=== PATIENT | male | born 1975 | race Caucasian/White ===

== ENCOUNTER 2024-02-25 01:14 | Emergency (ER) | payer OTHER, SELFPAY ==
[2024-02-25 01:26] VITALS: BP 168/105
--- NOTE | 2024-02-25 01:38 | ED.GENMED ---
History of Present Illness
<KATALINA Herman - Last Filed: 02/25/24 02:31>
General
Chief Complaint: Flank Pain
Source: patient
Time Seen by Provider: 02/25/24 01:38
Travel History
Have you had any contact with someone who has COVID-19?: No
Do you have any symptoms of coronavirus? Fever > 100 degrees, chills, cough, shortness of breath, sore throat, loss of taste or smell, muscle aches, or headache?: No
History of Present Illness
History of Present Illness:
Pt is a 48 year old male with a PMHx of HTN presenting for right flank pain since Wednesday02/19/24. He was driven here by his mother as he was not sure he would have to stay and sitting while driving exacerbates his pain. The pain began after
lifting a heavy bag of potatoes. He states his PCP thought it was a muscle spasm and instructed him to take ibuprofen. He reports he has also tried applying veterinary liniment gel but reports nothing has not helped his pain. While nothing specific
relieves his pain he states it comes and goes. He describes it as sharp with radiation to his lower back. He states when the pain is less it is a 5.5/10, but flares to a 10/10 when exacerbated. He reports nausea the first day but not since. He
denies vomiting, diarrhea, fever/chills, dysuria, hematuria, exacerbation with eating, chest pain, SOB, or headache. He reports a family history of nephrolithiasis (son and father). He denies tobacco use and reports occasional alcohol consumption.
He reports taking amlodipine 10 mg, metoprolol 25 mg, lisinopril 40 mg, and HCTZ 25 mg all once daily for HTN.
Review of Systems
<KATALINA Herman - Last Filed: 02/25/24 02:31>
Review of Systems
All Other Systems: Not applicable
Constitutional: Reports no symptoms
EENT: Reports no symptoms
Respiratory: Reports no symptoms
Cardiac: Reports no symptoms
ABD/GI: Reports nausea
: Reports flank pain
Musculoskeletal: Reports no symptoms
Skin: Reports no symptoms
Neurological: Reports no symptoms
Endocrine: Reports no symptoms
Hematologic/Lymphatic: Reports no symptoms
Psychiatric: Reports no symptoms
Phy Exam
<KATALINA Herman - Last Filed: 02/25/24 02:31>
General Physical Exam
General Presentation: well appearing and no apparent distress
General age: appears stated age
General Skin: warm and dry
General Habitus: obese
General Mental: alert
General Hydration: appears well hydrated
ENT Exam
ENT Exam: EOMI
Eye Exam
Eye Exam: conjunctiva normal
Cardiovascular Exam
Cardiovascular Exam: regular rate/rhythm, no gallop and no murmur
Pulmonary Exam
Pulmonary Exam: lungs clear, no respiratory distress, no rales, no crackles, no rhonchi, no wheezing and no cough
Gastrointestinal Exam
Gastrointestinal Exam: normal bowel sounds, non tender, soft, non distended and no cva tenderness
Neurological Exam
Neurological Exam: alert and oriented x3
Musculoskeletal Exam
Musculoskeletal Exam: back pain (TTP of right lumbar paraspinal muscles)
Skin Exam
Skin Exam: normal color and warm/dry
Psychiatric Exam
Psychiatric Exam: normal mood/affect
Course
<KATALINA Herman - Last Filed: 02/25/24 02:31>
Orders/Labs/Results
Orders:
Orders
02/25/24 01:44
Urinalysis Reflex To Culture Urgent
Date Specimen was Collected: 02/25/24
Time Specimen was Collected: 01:33
Urine Microscopic Reflex Cult Urgent
Urine Culture Urgent
[facility] Source: U
Specimen Description:
Date Specimen was Collected: 02/25/24
Time Specimen was Collected: 01:33
02/25/24 02:14
CT Abd/pelvis W Iv Cont Urgent
Comment:
Reason For Exam: r flank paihn
02/25/24 02:34
CBC/With Diff [Complete Blood Count/With Diff] Urgent
CMP [Comprehensive Metabolic Panel] Urgent
Abnormal Lab Results
02/25/24 02/25/24
01:44 02:34
RBC 4.44 L 10^6/uL
(4.70-6.10)
MCH 31.8 H pg
(27.0-31.0)
MPV 10.7 H fL
(7.4-10.4)
Absolute Monos (auto) 0.8 H 10^3/uL
(0.1-0.6)
Lymphocytes % 20.2 L %
(20.5-51.1)
BUN 25 H mg/dl
(9-20)
Glucose 106 H mg/dl
(70-99)
Urine Ketones Trace A
(Negative)
Ur Occult Blood Reflex Trace A
(Negative)
Urine Bilirubin 1+ A
(Negative)
Leukocyte Esterase Rfl Trace A
(Negative)
Urine RBC 11-15 A /HPF
(0-2)
Urine WBC (Reflex) 11-15 A /HPF
(0-5)
Urine Bacteria (Reflex) Few A
(Negative)
02/25/24 02:34
02/25/24 02:34
Vital Signs
Initial and Last Documented VS:
Initial Vital Signs
Temp Pulse Resp BP Pulse Ox
98.3 F 66 20 168/105 95
02/25/24 01:26 02/25/24 01:26 02/25/24 01:26 02/25/24 01:26 02/25/24 01:26
Last Documented Vital Signs
Temp Pulse Resp BP Pulse Ox
98.3 F 70 20 154/98 99
02/25/24 01:26 02/25/24 04:31 02/25/24 04:31 02/25/24 04:31 02/25/24 04:31
<Terrence Adorno, DO - Last Filed: 02/25/24 05:42>
Orders/Labs/Results
Orders:
Orders
02/25/24 01:44
Urinalysis Reflex To Culture Urgent
Date Specimen was Collected: 02/25/24
Time Specimen was Collected: 01:33
Urine Microscopic Reflex Cult Urgent
Urine Culture Urgent
[facility] Source: U
Specimen Description:
Date Specimen was Collected: 02/25/24
Time Specimen was Collected: 01:33
02/25/24 02:14
CT Abd/pelvis W Iv Cont Urgent
Comment:
Reason For Exam: r flank paihn
02/25/24 02:34
CBC/With Diff [Complete Blood Count/With Diff] Urgent
CMP [Comprehensive Metabolic Panel] Urgent
Abnormal Lab Results
02/25/24 02/25/24
01:44 02:34
RBC 4.44 L 10^6/uL
(4.70-6.10)
MCH 31.8 H pg
(27.0-31.0)
MPV 10.7 H fL
(7.4-10.4)
Absolute Monos (auto) 0.8 H 10^3/uL
(0.1-0.6)
Lymphocytes % 20.2 L %
(20.5-51.1)
BUN 25 H mg/dl
(9-20)
Glucose 106 H mg/dl
(70-99)
Urine Ketones Trace A
(Negative)
Ur Occult Blood Reflex Trace A
(Negative)
Urine Bilirubin 1+ A
(Negative)
Leukocyte Esterase Rfl Trace A
(Negative)
Urine RBC 11-15 A /HPF
(0-2)
Urine WBC (Reflex) 11-15 A /HPF
(0-5)
Urine Bacteria (Reflex) Few A
(Negative)
02/25/24 02:34
02/25/24 02:34
Vital Signs
Initial and Last Documented VS:
Initial Vital Signs
Temp Pulse Resp BP Pulse Ox
98.3 F 66 20 168/105 95
02/25/24 01:26 02/25/24 01:26 02/25/24 01:26 02/25/24 01:26 02/25/24 01:26
Last Documented Vital Signs
Temp Pulse Resp BP Pulse Ox
98.3 F 70 20 154/98 99
02/25/24 01:26 02/25/24 04:31 02/25/24 04:31 02/25/24 04:31 02/25/24 04:31
<KATALINA Herman - Last Filed: 02/25/24 02:31>
MDM/Problems Addressed
Differential Diagnosis Includes:
muscle spasm, nephrolithiasis, constipation, cholecystitis
MDM/Problems Addressed:
flank pain
Chronic conditions affecting care: HTN
<KATALINA Herman - Last Filed: 02/25/24 02:31>
*Critical Care Note
Total Time (30-74mins, 75-104mins- exclusive of procedures): Not Applicable
<Terrence Adorno DO - Last Filed: 02/25/24 05:42>
Update Note
Update Note:
CT A/P W/IV CONTRAST
IMPRESSION:
5 mm obstructing stone in the distal R uretere. Mild hydroureteronephrosis. Mild perinephric fat stranding. Please check for signs of infection.
No evidence of left hydroureteronephrosis or obstructing stone.
No appendicitis or colitis.
No evidence of small bowel obstruction. No free fluid or free air.
No AAA.
ED Attending Note
<Tiffany Ivonnevictor manuel RADHA - Last Filed: 02/25/24 02:31>
-
Portions of this chart may have been created with voice recognition software.� Occasional wrong word or��sound alike� substitutions may have occurred due to the inherent limitations of voice recognition software.
Discharge Plan
Departure
Patient Disposition: Home (Routine Discharge)
Date of Disposition: 02/25/24
Time of Disposition: 05:38
Patient with high blood pressure during this ER visit?: Yes
Discharge Problem:
Kidney stone
Instructions: Kidney Stones (DC), How to Strain Your Urine, BLOOD PRESSURE, Narcotic Pain Medication
Prescriptions:
New
oxycodone-acetaminophen [Percocet] 5-325 mg Tablet
1 tab PO Q4HPRN PRN (Reason: pain) Qty: 10 0RF
tamsulosin [Flomax] 0.4 mg Capsule
0.4 mg PO DAILY Qty: 7 0RF
diclofenac sodium 75 mg tablet,delayed release (DR/EC)
75 mg PO BID Qty: 10 0RF
Referrals:
Antony De Anda MD [Active] -
Natividad Lewis PA-C [Family Provider] -
Activity Restrictions/Additional Instructions:
It was a pleasure meeting you and taking part in your care. We hope for your continued healing and wellness.
Please read discharge instructions in their entirety. However, they are for general education and may not describe your exact diagnosis at discharge. Information on your ER visit and medical conditions were discussed with you along with appropriate
follow up information...
If indicated, please take your medications as instructed and indicated on discharge paperwork.
Please schedule a follow up appointment as directed. Call to schedule an appointment
Please return to the emergency department with ANY change in, persisting, or worsening of symptoms. If any of your symptoms do not improve, or persist, or become more severe within 6-12 hours, please return to the emergency department for further
care.
Please return to the emergency department if you develop a headache, neck pain/stiffness, fever greater than 100.4F, chest pain, shortness of breath, persistent nausea, vomiting, slurred speech, difficulty walking, numbness/tingling, weakness, signs
of infection or any other symptoms that are worrisome to you.
If you have any questions or concerns please do not hesitate to call the Hospital at or E-mail me directly at [email or web address]
Interventions
Interventions:
*Risk Screen - Suicide Last Done: 02/25/24 01:26
*General Assessment Last Done: 02/25/24 01:26
*Neglect/Abuse Screening Last Done: 02/25/24 01:26
ED- Fall Risk Assessment Last Done: 02/25/24 01:26
*ED COVID-19 Vaccine History Last Done: 02/25/24 01:26
BG-Uvygqr-Inarhhrvxu Assessment Last Done: 02/25/24 01:47
ED-Male Genitourinary Assessment Last Done: 02/25/24 01:47
ED-Musculoskeletal Assessment Last Done: 02/25/24 01:47
Discharge Date and Time
Print Language: BELARUSIAN
[2024-02-25 01:47] VITALS: BMI 55.7
[2024-02-25 01:53] LABS: Urine Albumin Trace (Neg - Trace); Urine Bilirubin 1+ (Negative); Urine Character Clear (Clear); Urine Color Yellow; Urine Glucose Negative (Negative); Urine Ketone Trace (Negative); Urine Leukocyte Trace (Negative); Urine Nitrite Negative (Negative); Urine Occult Blood Trace (Negative); Urine Specific Gravity 1.025 (<1.030); Urine Urobilinogen 1+ (Neg - 1+)
[2024-02-25 02:11] LABS: Urine Mucus Moderate; Urine Squamous Cell >30 /LPF (Few)
[2024-02-25 02:12] LABS: Urine Bacteria Few (Negative)
[2024-02-25 03:10] LABS: % Basophils 0.5 % (0-2); % Immature Granulocytes 0.1 % (0-0.5); % Lymphocytes 20.2 % (20.5-51.1); % Monocytes 8.6 % (1.7-9.3); % Neutrophils 68.6 % (42.2-75.2); Absolute Basophils 0.1 10^3/uL (0-0.2); Absolute Eosinophils 0.2 10^3/uL (0-0.7); Absolute Lymphocytes 1.8 10^3/uL (1.2-3.4); Absolute Monocytes 0.8 10^3/uL (0.1-0.6); Absolute Neutrophils 6.3 10^3/uL (1.4-6.5); Hemoglobin 14.1 g/dL (13.0-18.0); Mean Corp Hgb Conc. 36.2 g/dL (33.0-37.0); Mean Corpuscular Hgb 31.8 pg (27.0-31.0); Mean Corpuscular Volume 87.8 fL (80.0-94.0); Mean Platelet Volume 10.7 fL (7.4-10.4); Nucleated Red Blood Cells % 0 % (-); Platelet Count 197 10^3/uL (130-400); Red Blood Cell Count 4.44 10^6/uL (4.70-6.10); Red Cell Dist. Width 12.3 % (11.5-14.5); White Blood Cell Count 9.1 10^3/uL (4.8-10.8)
[2024-02-25 03:51] LABS: ALT (SGPT) 27 U/L (0-50); AST (SGOT) 22 U/L (17-59); Albumin 4.1 g/dl (3.5-5.0); Alkaline Phosphatase 90 U/L (38-126); Blood Urea Nitrogen 25 mg/dl (9-20); Calcium 9.3 mg/dl (8.4-10.2); Carbon Dioxide 25 mmol/L (22-30); Chloride 104 mmol/L (98-107); Estimated Creatinine Clearance > 125 ml/min; Glucose 106 mg/dl (70-99); Potassium 3.7 mmol/L (3.5-5.1); Sodium 139 mmol/L (135-145); Total Bilirubin 0.8 mg/dl (0.2-1.3); eGFR > 60.00
[2024-02-25 04:31] VITALS: BP 154/98
== END 2024-02-25 06:00 | disposition home or self-care (01) ==
LOC: EMR 01:14
PROVIDERS: EMERGENCY PHYSICIAN Student in an Organized Health Care Education/Training Program; FAMILY PHYSICIAN Physician Assistant
DX: N13.2 Hydronephrosis with renal and ureteral calculous obstruction (principal); I10 Essential (primary) hypertension
CPT/HCPCS: 99285; 74177; 80053; 81003; 81015; 85025; 87086; Q9967

== ENCOUNTER → 2025-02-27 06:30 | Outpatient (REF) | payer OTHER, SELFPAY | LOC: RAD 06:30 | PROVIDERS: ATTENDING PHYSICIAN Physician Assistant | DX: M79.89 Other specified soft tissue disorders (principal); M25.562 Pain in left knee | CPT/HCPCS: 73564; 93970 ==